=== PATIENT | female | born 1995 | race Two or more races ===

== ENCOUNTER 2018-11-09 12:14 | Emergency (ER) | payer OTHER ==
[~2018-11-09] VITALS: Ht 167.6 cm; Wt 56.7 kg
[2018-11-09 12:22] VITALS: BP 101/59
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
[2018-11-09] MEDS ORDERED: IBUPROFEN600 MG ORAL (13:15)
[2018-11-09] MEDS ORDERED: ROBAXIN-750750 MG PO (13:15)
[2018-11-09 13:21] VITALS: BP 122/79
== END 2018-11-09 13:25 | disposition home or self-care (01) ==
LOC: EMR 12:35
DX: M62.838 Other muscle spasm (principal); V43.62XA Car passenger injured in collision with other type car in traffic accident, initial encounter; Y92.410 Unspecified street and highway as the place of occurrence of the external cause
CPT/HCPCS: 99282